=== PATIENT | male | born 1945 | race Caucasian/White ===

== ENCOUNTER 2017-03-17 10:48 | Emergency (ER) | payer OTHER, BC ==
[~2017-03-17] VITALS: Ht 177.8 cm; Wt 91.2 kg
[~2017-03-17 10:48] MED LIST: FLOMAX0.4 MG PO; PERCOCET 5/31 TABLET PO; SIMVASTATIN10 MG PO; ZOFRAN ODT4 MG PO
[2017-03-17 11:01] VITALS: BP 134/80
[2017-03-17] MEDS ORDERED: TAMSULOSIN HCL0.4 MG PO (12:49)
== END 2017-03-17 13:14 | disposition home or self-care (01) ==
LOC: EME 10:48
DX: S80.12XA Contusion of left lower leg, initial encounter (principal); E78.00 Pure hypercholesterolemia, unspecified; W50.0XXA Accidental hit or strike by another person, initial encounter
CPT/HCPCS: 73590; 99281; 99283

== ENCOUNTER 2018-05-26 17:04 | Emergency (ER) | payer OTHER, BC ==
[~2018-05-26] VITALS: Ht 177.8 cm; Wt 91.4 kg
[~2018-05-26 17:04] MED LIST changes: +TAMSULOSIN HCL0.4 MG PO
[2018-05-26 18:52] LABS: HEMATOCRIT 39.5 % (38.0-50.0); HEMOGLOBIN 13.7 G/DL (12.5-16.6); MCH 31.1 PG (29.0-34.0); MCHC 34.7 G/DL (30.0-36.0); MCV 89.8 FL (86-99); PLATELET COUNT 147 K/uL (156-360); RBC DIS.WIDTH-CV 11.6 % (11.8-14.6); RBC DIS.WIDTH-SD 38.1 % (39-53); WHITE BLOOD COUNT 7.1 K/uL (4.1-10.2)
[2018-05-26 19:02] LABS: CHLORIDE 104 mEq/L (99-109); SODIUM 139 mEq/L (136-147)
[2018-05-26 19:04] LABS: GLUCOSE 92 mg/dL (70-99); TOTAL PROTEIN 6.7 g/dL (6.4-8.3)
[2018-05-26 19:06] LABS: TOTAL BILIRUBIN 0.4 mg/dL (0.0-1.0)
[2018-05-26 19:08] LABS: ALKALINE PHOSPHATASE 43 IU/L (3-129); GFR ESTIMATE (CALCULATED) > 59 mL/min/ (58.99-99999)
[2018-05-26 19:09] LABS: AST (GOT) 39 IU/L (2-34); UREA NITROGEN (BUN) 23 mg/dL (9-23)
[2018-05-26 19:11] LABS: ALT (GPT) 36 IU/L (3-49); CREATINE KINASE 420 IU/L (1-294); TOTAL CK 420 IU/L (1-294)
[2018-05-26 19:19] LABS: CK-MB 9.4 ng/mL (0.0-4.9); CKMB RELATIVE INDEX 2.2 (0.0-3.9)
[2018-05-26 19:52] VITALS: BP 186/83
== END 2018-05-26 19:53 | disposition home or self-care (01) ==
LOC: EME 17:04
PROVIDERS: Nurse Practitioner Family
DX: M79.671 Pain in right foot (principal); M62.82 Rhabdomyolysis; E78.5 Hyperlipidemia, unspecified
CPT/HCPCS: 73630; 80053; 82550; 82553; 85027; 99281; 99284; J1885